=== PATIENT | female | born 1990 | race African-American/Black ===

== ENCOUNTER 2017-07-10 19:45 | Emergency (ER) | payer SELFPAY ==
[2017-07-10] MEDS ORDERED: Ondansetron ODT 4 MG TAB ONE (20:00)
[2017-07-10] MEDS ORDERED: Acetaminophen 500 MG TAB ONE (20:00)
[2017-07-10 20:10] LABS: Hematocrit 40.9 % (36.0-47.0); Mean Platelet Volume 7.7 fL (7.4-10.4); Red Blood Cell (RBC) Count 4.23 mill/uL (4.20-5.40); White Blood Cell (WBC) Count 10.5 thou/uL (4.8-10.8)
[2017-07-10 20:28] LABS: ALT (SGPT) 17 U/L (8-55); AST (SGOT) 19 U/L (5-34); Alkaline Phosphatase 41 U/L (40-150); Anion Gap 15 mmol/L (10-20); BUN (Urea Nitrogen) 9 mg/dL (7.0-18.7); Bilirubin, Total 0.6 mg/dL (0.2-1.2); Calc. Creatinine Clearance 0 mL/min (70-130); Calcium 9.7 mg/dL (7.8-10.44); Carbon Dioxide 24 mmol/L (22-29); Chloride 102 mmol/L (98-107); Estimated GFR-MDRD 84; Globulin 3.7 g/dL (2.4-3.5); Lipase 5 U/L (8-78); Protein, Total 8.3 g/dL (6.0-8.3)
[2017-07-10 20:30] LABS: Neutrophil 89 % (42-75)
[2017-07-10 22:07] LABS: Bilirubin Negative (Negative); Blood, Urine Negative (Negative); Glucose, Urine (Dipstick) Negative (Negative); Ketone, Urine Negative (Negative); Nitrite Negative (Negative); Protein, Urine (Dipstick) Trace mg/dL (Neg-Trace)
== END 2017-07-10 22:49 | disposition home or self-care (01) ==
LOC: ERS 19:45
DX: B34.9 Viral infection, unspecified (principal); G43.909 Migraine, unspecified, not intractable, without status migrainosus
CPT/HCPCS: 36415; 80053; 81003; 81025; 83690; 85025; 99284; Q0162

== ENCOUNTER 2017-07-14 00:14 | Emergency (ER) | payer SELFPAY ==
[2017-07-14] MEDS ORDERED: Ondansetron ODT 4 MG TAB ONE (00:25)
[2017-07-14 01:55] LABS: ALT (SGPT) 55 U/L (8-55); AST (SGOT) 60 U/L (5-34); Alkaline Phosphatase 44 U/L (40-150); Anion Gap 14 mmol/L (10-20); BUN (Urea Nitrogen) 10 mg/dL (7.0-18.7); Bilirubin, Total 0.8 mg/dL (0.2-1.2); Calc. Creatinine Clearance 0 mL/min (70-130); Calcium 9.8 mg/dL (7.8-10.44); Carbon Dioxide 25 mmol/L (22-29); Chloride 98 mmol/L (98-107); Estimated GFR-MDRD Greater than 90; Globulin 3.9 g/dL (2.4-3.5); Hematocrit 44.9 % (36.0-47.0); Protein, Total 8.3 g/dL (6.0-8.3); Red Blood Cell (RBC) Count 4.74 mill/uL (4.20-5.40); White Blood Cell (WBC) Count 4.9 thou/uL (4.8-10.8)
[2017-07-14] MEDS ORDERED: Albuterol Sulfate 2.5 mg/3 ml Neb ONE (02:08)
[2017-07-14 02:20] LABS: Band 2 % (5-11); Neutrophil 66 % (42-75)
[2017-07-14] MEDS ORDERED: Ketorolac Tromethamine 30 MG/ML VIAL ONE (02:36)
[2017-07-14] MEDS ORDERED: Metoclopramide HCl 10 MG/2 ML VIAL ONE (03:42)
[2017-07-14] MEDS ORDERED: methylPREDNISolone Sod Succ/PF 125 MG/2 ML VIAL ONE (06:10)
[2017-07-14] MEDS ORDERED: Azithromycin 250 MG TAB ONE (06:10)
[2017-07-14] MEDS ORDERED: Water For Inject, Bacteriostat 30 ML ONE (06:23)
--- NOTE | 2017-07-14 07:59 | RAD ---
PA AND LATERAL CHEST: History: Cough. FINDINGS: The heart size is normal. The lungs are expanded without focal areas of consolidation, pneumothorax, or pleural effusions. No acute osseous abnormalities are seen. IMPRESSION: No acute process. POS: [facility]
--- NOTE | 2017-07-14 08:27 | CT ---
PRELIMINARY REPORT/[facility]/EMERGENCY AFTER HOURS PROCEDURE: EXAM: CT Angiography Chest With Intravenous Contrast EXAM DATE/TIME: Exam ordered 07/14/2017 4:10 AM CLINICAL HISTORY: 26 years old, female; Signs and symptoms; Dyspnea; Patient HX: R/O pe TECHNIQUE: Axial computed tomographic angiography images of the chest with intravenous contrast using pulmonary embolism protocol. CONTRAST: 100 mL of ISOVUE administered intravenously. COMPARISON: No relevant prior studies available. FINDINGS: Pulmonary arteries: There is no evidence of peripheral filling defects within the pulmonary arterial circulation to suggest pulmonary embolism. Aorta: No acute findings. No thoracic aortic aneurysm. Lungs: There are patchy bilateral lung opacities, RIGHT greater than LEFT suspicious for pneumonia. Pleural space: Normal. No significant effusion. No pneumothorax. Heart: Normal. No cardiomegaly. No significant pericardial effusion. No evidence of RV dysfunction. Mediastinum: The trachea is normal. Thyroid: The thyroid gland is normal. Bones/joints: No acute fracture. No dislocation. Soft tissues: Normal. Lymph nodes: Normal. No enlarged lymph nodes. IMPRESSION: 1. There is no CT evidence of acute pulmonary embolism. 2. There are patchy bilateral lung opacities, RIGHT greater than LEFT suspicious for pneumonia. Thank you for allowing us to participate in the care of your patient. Dictated and Authenticated by: Tico Bernal MD 07/14/2017 5:07 AM Central Time ([place] & [place]) CT PULMONARY ANGIOGRAM WITH IV CONTRAST AND 3D POST PROCESSING: FINAL REPORT FINDINGS/IMPRESSION: I agree with the preliminary report given by Dr. Tico Bernal of [facility]. POS: [facility]
== END 2017-07-14 06:34 | disposition home or self-care (01) ==
LOC: ERS 00:14
DX: J18.9 Pneumonia, unspecified organism (principal); F17.210 Nicotine dependence, cigarettes, uncomplicated
CPT/HCPCS: 36415; 71020; 71275; 80053; 84703; 85025; 85379; 96361; 96365; 96375; J0696; J1885; J2765; J2930; J7611; Q0162

== ENCOUNTER 2021-02-20 10:16 | Emergency (ER) | payer SELFPAY | END 2021-02-20 11:05 | disposition home or self-care (01) | LOC: ERS 10:16 | DX: Z48.817 Encounter for surgical aftercare following surgery on the skin and subcutaneous tissue (principal); F17.210 Nicotine dependence, cigarettes, uncomplicated; Z79.899 Other long term (current) drug therapy | CPT/HCPCS: 99282 ==

== ENCOUNTER 2022-02-16 18:26 | Emergency (ER) | payer SELFPAY ==
[2022-02-16] MEDS ORDERED: Ketorolac Tromethamine 30 MG/ML VIAL ONE (19:12)
[2022-02-16 19:24] LABS: #Basophils 0.1 thou/uL (0.0-0.2); #Eosinphils 0.3 thou/uL (0.0-0.7); #Lymphocytes 2.7 thou/uL (1.20-3.40); #Monocytes 0.6 thou/uL (0.11-0.59); #Neutrophils 8.3 thou/uL (1.40-6.50); %Basophils 0.5 % (0.0-1.0); %Eosinophils 2.5 % (0.0-10.0); %Lymphocytes 22.4 % (21.0-51.0); %Neutrophils 69.6 % (42.0-75.0); Hemoglobin 13.4 g/dL (12.0-16.0); Mean Corpuscular Hemoglobin 33.3 pg (27.0-31.0); Mean Corpuscular Volume 97.7 fL (78.0-98.0); Mean Platelet Volume 8.4 fL (7.4-10.4); Platelet Count 303 thou/uL (130-400); RBC Distribution Width 12.4 % (11.5-14.5); Red Blood Cell (RBC) Count 4.04 mill/uL (4.20-5.40); White Blood Cell (WBC) Count 11.9 thou/uL (4.8-10.8)
[2022-02-16 19:29] LABS: BHCG - Serum Negative (NEGATIVE); Pregs Control Background? CLEAR/WHITE (CLR/WHITE); Pregs Control Bar Appear? YES (CONTROL BAR)
[2022-02-16 19:46] LABS: ALT (SGPT) 21 U/L (8-55); AST (SGOT) 18 U/L (5-34); Albumin 4.2 g/dL (3.5-5.0); Alkaline Phosphatase 48 U/L (40-110); Anion Gap 13 mmol/L (10-20); BUN (Urea Nitrogen) 12 mg/dL (7.0-18.7); Bilirubin, Total 0.3 mg/dL (0.2-1.2); Calc. Creatinine Clearance 0 mL/min (70-130); Calcium 9.4 mg/dL (7.8-10.44); Carbon Dioxide 26 mmol/L (22-29); Chloride 105 mmol/L (98-107); Estimated GFR 90; Globulin 3.6 g/dL (2.4-3.5); Glucose 103 mg/dL (70-105); Lipase 16 U/L (8-78); Potassium 3.9 mmol/L (3.5-5.1); Protein, Total 7.8 g/dL (6.0-8.3); Sodium 140 mmol/L (136-145)
== END 2022-02-16 21:36 | disposition home or self-care (01) ==
LOC: ERS 18:26
DX: K80.50 Calculus of bile duct without cholangitis or cholecystitis without obstruction (principal); F17.210 Nicotine dependence, cigarettes, uncomplicated
CPT/HCPCS: 36415; 71045; 76705; 80053; 83690; 84703; 85025; 93005; 94760; 96361; 96374; J1885

== ENCOUNTER 2022-07-19 14:57 | Emergency (ER) | payer BC, SELFPAY ==
[2022-07-19 15:41] LABS: BHCG - Serum Negative (NEGATIVE); Pregs Control Background? CLEAR/WHITE (CLR/WHITE); Pregs Control Bar Appear? YES (CONTROL BAR)
[2022-07-19 15:47] LABS: #Eosinphils 0.1 thou/uL (0.0-0.7); #Lymphocytes 2.4 thou/uL (1.20-3.40); #Monocytes 0.8 thou/uL (0.11-0.59); #Neutrophils 8.6 thou/uL (1.40-6.50); %Basophils 0.2 % (0.0-1.0); %Eosinophils 1.1 % (0.0-10.0); %Monocytes 6.5 % (0.0-10.0); %Neutrophils 72.3 % (42.0-75.0); Hemoglobin 13.8 g/dL (12.0-16.0); Mean Corpuscular HGB CONC 33.1 g/dL (32.0-36.0); Mean Corpuscular Volume 96.5 fl (78.0-98.0); Mean Platelet Volume 8.8 fL (7.4-10.4); Platelet Count 297 10x3/uL (130-400); RBC Distribution Width 12.8 % (11.5-14.5); Red Blood Cell (RBC) Count 4.33 mill/uL (4.20-5.40); White Blood Cell (WBC) Count 11.8 10x3/uL (4.8-10.8)
[2022-07-19 15:58] LABS: ALT (SGPT) 13 U/L (8-55); AST (SGOT) 15 U/L (5-34); Albumin 4.4 g/dL (3.5-5.0); Alkaline Phosphatase 42 U/L (40-110); Anion Gap 13 mmol/L (10-20); BUN (Urea Nitrogen) 7 mg/dL (7.0-18.7); Bilirubin, Total 0.5 mg/dL (0.2-1.2); Calc. Creatinine Clearance 0 mL/min (70-130); Calcium 9.6 mg/dL (7.8-10.44); Carbon Dioxide 24 mmol/L (22-29); Chloride 105 mmol/L (98-107); Estimated GFR 102; Globulin 3.2 g/dL (2.4-3.5); Glucose 84 mg/dL (70-105); Lipase 7 U/L (8-78); Protein, Total 7.6 g/dL (6.0-8.3); Sodium 138 mmol/L (136-145)
[2022-07-19] MEDS ORDERED: Dicyclomine 20 MG/2 ML VIAL ONE (16:04)
[2022-07-19] MEDS ORDERED: Ketorolac Tromethamine 30 MG/ML VIAL ONE (16:05)
[2022-07-19] MEDS ORDERED: Ondansetron PF 4 MG/2 ML Vial ONE ×2 (16:05→16:08)
[2022-07-19] MEDS ORDERED: Ondansetron ODT 4 MG TAB ONE (16:08)
[2022-07-19 16:42] LABS: Bilirubin Negative (Negative); Blood, Urine Negative (Negative); Glucose, Urine (Dipstick) Normal (Negative); Ketone, Urine Negative (Negative); Leukocyte Negative Leu/uL (Negative); Nitrite Negative (Negative); Protein, Urine (Dipstick) 10 mg/dL (Neg-Trace); Specific Gravity, Urine 1.026 (1.002-1.036)
[2022-07-19 16:44] LABS: Clarity Hazy (Clear)
== END 2022-07-19 17:40 | disposition home or self-care (01) ==
LOC: ERS 14:57
DX: K80.20 Calculus of gallbladder without cholecystitis without obstruction (principal); F17.210 Nicotine dependence, cigarettes, uncomplicated
CPT/HCPCS: 36415; 76705; 80053; 81003; 83690; 84703; 85025; 96372; J1885; J2405; Q0162

== ENCOUNTER 2022-07-20 03:57 | Observation (INO) | payer BC ==
[2022-07-20] MEDS ORDERED: Ondansetron PF 4 MG/2 ML Vial ONE ×2 (04:33→12:30)
[2022-07-20] MEDS ORDERED: Morphine 4 MG/ML VIAL ONE (04:33)
[2022-07-20 05:16] LABS: ALT (SGPT) 18 U/L (8-55); AST (SGOT) 13 U/L (5-34); Albumin 4.1 g/dL (3.5-5.0); Alkaline Phosphatase 41 U/L (40-110); Anion Gap 12 mmol/L (10-20); BUN (Urea Nitrogen) 10 mg/dL (7.0-18.7); Bilirubin, Total 0.6 mg/dL (0.2-1.2); Calc. Creatinine Clearance 0 mL/min (70-130); Calcium 9.5 mg/dL (7.8-10.44); Carbon Dioxide 23 mmol/L (22-29); Chloride 105 mmol/L (98-107); Estimated GFR 98; Globulin 3.1 g/dL (2.4-3.5); Glucose 101 mg/dL (70-105); Lipase 11 U/L (8-78); Potassium 3.8 mmol/L (3.5-5.1); Protein, Total 7.2 g/dL (6.0-8.3); Sodium 136 mmol/L (136-145)
[2022-07-20 05:31] LABS: #Eosinphils 0.2 thou/uL (0.0-0.7); #Lymphocytes 2.3 thou/uL (1.20-3.40); #Monocytes 0.8 thou/uL (0.11-0.59); #Neutrophils 8.3 thou/uL (1.40-6.50); %Basophils 0.3 % (0.0-1.0); %Eosinophils 1.3 % (0.0-10.0); %Monocytes 7.2 % (0.0-10.0); %Neutrophils 71.1 % (42.0-75.0); Hemoglobin 13.6 g/dL (12.0-16.0); Mean Corpuscular HGB CONC 34.7 g/dL (32.0-36.0); Mean Corpuscular Hemoglobin 33.1 pg (27.0-31.0); Mean Corpuscular Volume 95.6 fl (78.0-98.0); Mean Platelet Volume 8.8 fL (7.4-10.4); Platelet Count 277 10x3/uL (130-400); RBC Distribution Width 12.7 % (11.5-14.5); White Blood Cell (WBC) Count 11.7 10x3/uL (4.8-10.8)
[2022-07-20] MEDS ORDERED: Piperacillin/Tazobactam 3.375 GM VIAL ONE (06:34)
[2022-07-20] MEDS ORDERED: Morphine 4 MG/ML VIAL SLOW IVP PRN (10:21)
[2022-07-20] MEDS ORDERED: Ondansetron ODT 4 MG TAB SL PRN (10:30)
[2022-07-20] MEDS ORDERED: Ondansetron PF 4 MG/2 ML Vial IVP PRN (10:30)
[2022-07-20] MEDS ORDERED: Piperacillin/Tazobactam 3.375 GM in Sodium Chloride 0.9% 100 ML IVPB SCH (11:00)
[2022-07-20 11:11] VITALS: BMI 44.6
[2022-07-20] MEDS ORDERED: Ketorolac Tromethamine 30 MG/ML VIAL ONE (12:30)
[2022-07-20] MEDS ORDERED: PROPOFOL 200 MG/20 ML VIAL ONE (12:30)
[2022-07-20] MEDS ORDERED: Dexamethasone 20 MG/5 ML VIAL ONE (12:30)
[2022-07-20] MEDS ORDERED: Fentanyl 250 MCG/5 ML VIAL ONE (12:33)
[2022-07-20] MEDS ORDERED: SUGAMMADEX SODIUM 200 MG/2 ML VIAL ONE (12:33)
[2022-07-20 12:51] LABS: SARS-CoV-2 NAA Rapid Test Not Detected (NotDetected)
[2022-07-20] MEDS ORDERED: Bupivacaine/Epinephrine 0.25% 30 ML VIAL ONE (14:01)
[2022-07-20] MEDS ORDERED: Fentanyl 100 MCG/2 ML VIAL ONE ×2 (14:23→14:39)
[2022-07-20 15:28] VITALS: BP 128/58; TEMP 98.1
[2022-07-20] MEDS ORDERED: Acetaminophen 325 MG TAB PO PRN (15:46)
[2022-07-20] MEDS ORDERED: Ibuprofen 200 MG TAB PO PRN (15:48)
[2022-07-20] MEDS ORDERED: HYDROcodone/Acetaminophen 5/325 mg Tablet PO PRN (15:50)
[2022-07-23] MEDS ORDERED: FLU VACC QS2022-23(6MOS UP)/PF 60 MCG/0.5 ML SYRINGE IM ONE (13:00)
== END 2022-07-20 19:30 | disposition home or self-care (01) ==
LOC: ERS 03:57 → SURG B 05:59 → INTOOBSV 05:59
PROVIDERS: ADMIT Surgery; ATTEND Surgery
PROC: 0FT44ZZ Resection of Gallbladder, Percutaneous Endoscopic Approach (ICD-10-PCS; principal; 2022-07-20)
DX: K80.12 Calculus of gallbladder with acute and chronic cholecystitis without obstruction (principal); F17.210 Nicotine dependence, cigarettes, uncomplicated; Z20.822 Contact with and (suspected) exposure to COVID-19
CPT/HCPCS: 36415; 80053; 83690; 85025; 88304; 96374; 96375; 96376; C1713; G0378; J1100; J1885; J2270; J2405; J2543; J2704; J3010; J3490; U0002